=== PATIENT | female | born 1980 | race Caucasian/White ===

== ENCOUNTER → 2018-09-08 | Outpatient (CLI) | payer OTHER | LOC: M RAD 09:55 | DX: O10.013 Pre-existing essential hypertension complicating pregnancy, third trimester (principal); O09.523 Supervision of elderly multigravida, third trimester; Z3A.35 35 weeks gestation of pregnancy | CPT/HCPCS: 76815 ==

== ENCOUNTER 2018-09-28 14:51 | Inpatient (IN) | payer OTHER ==
[2018-09-28] MEDS ORDERED: LR 1,000 ML IV (16:30)
[2018-09-28] MEDS: LR 1,000 ML IV (16:37)
[2018-09-28 16:45] LABS: BASO # 0.1 10^3/uL (0.0-0.2); BASO % 0.4 % (0.0-1.0); EOS # 0.1 10^3/uL (0.0-0.50); EOS % 0.7 % (0.0-3.0); HEMATOCRIT 39.4 % (36.0-47.0); HEMOGLOBIN 12.9 g/dl (12.0-15.5); IMMATURE GRANULOCYTE % 0.5 % (0-3.0); LYMPH # 2.2 10^3/uL (1.5-4.5); LYMPH % 16.4 % (24.0-44.0); MEAN CORPUSCULAR HGB CONC 32.7 g/dl (32.0-36.5); MEAN CORPUSCULAR VOLUME 88.5 fl (80.0-96.0); MONO # 0.9 10^3/uL (0.0-0.8); MONO % 6.9 % (0.0-5.0); NEUTROPHILS # 10.1 10^3/uL (1.8-7.7); NEUTROPHILS % 75.1 % (36.0-66.0); PLATELET COUNT, AUTOMATED 363 10^3/uL (150-450); RED BLOOD COUNT 4.45 10^6/uL (4.00-5.40); RED CELL DISTRIBUTION WIDTH 13.2 % (11.5-14.5); WHITE BLOOD COUNT 13.4 10^3/uL (4.0-10.0)
[2018-09-28 16:56] LABS: APPEARANCE, URINE HAZY (CLEAR); BACTERIA, URINE AUTO 1+ (NEGATIVE); BILIRUBIN, URINE AUTO NEGATIVE (NEGATIVE); BLOOD, URINE BLOOD NEGATIVE (NEGATIVE); COLOR, URINE YELLOW (YELLOW); GLUCOSE, URINE (UA) AUTO NEGATIVE (NEGATIVE); KETONE, URINE AUTO NEGATIVE (NEGATIVE); LEUKOCYTE ESTERASE, URINE AUTO 3+ (NEGATIVE); MUCUS, URINE SMALL (NEGATIVE); NITRITE, URINE AUTO NEGATIVE (NEGATIVE); PROTEIN, URINE AUTO NEGATIVE (NEGATIVE); RBC, URINE AUTO 3 /HPF (0-3); SPECIFIC GRAVITY URINE AUTO 1.018 (1.002-1.035); SQUAMOUS EPITHELIAL CELL UR AU 16 /HPF (0-6); UROBILINOGEN, URINE AUTO 0.2 mg/dL (0.0-2.0); WBC, URINE AUTO 16 /HPF (0-3)
[2018-09-28] MEDS: OXYTOCIN DRIP 30 UNITS in APPROPRIATE DILUENT 1 EA IV ×2 (16:57→23:35)
[2018-09-28] MEDS: LACTATED RINGER'S 1000 ML IV (16:58)
[2018-09-28 17:05] LABS: ALT/SGPT 16 U/L (12-78); AST/SGOT 12 U/L (7-37); BILIRUBIN,TOTAL 0.3 MG/DL (0.2-1.0); CREATININE FOR GFR 0.66 MG/DL (0.55-1.30); GLOMERULAR FILTRATION RATE > 60.0 (>58); LDH LACTATE DEHYDROGENASE 154 U/L (84-246); URIC ACID 4.9 MG/DL (2.6-6.0)
[2018-09-28 17:16] LABS: TOTAL PROTEIN,RANDOM URINE 17.1 MG/DL (0.0-12.0)
[2018-09-28] MEDS ORDERED: FENTANYL 2MCG/ML ROPIVACAINE 0.2% IN 0.9% NACL 200ML IVBAG As Ordered (17:21)
[2018-09-28] MEDS ORDERED: LACTATED RINGER'S 1000 ML IV (18:00)
[2018-09-28] MEDS ORDERED: EPIDURAL COMMENT XX (18:00)
[2018-09-28] MEDS ORDERED: REFRIGERATOR IV KEYS XX (18:00)
[2018-09-28] MEDS ORDERED: NALOXONE INJ 0.4 MG/1 ML VIAL (J2310) IV (18:00)
[2018-09-28] MEDS ORDERED: EPIDURAL/PCA KEYS XX (18:00)
[2018-09-28] MEDS ORDERED: ONDANSETRON 4MG/2ML VIAL (J2405) IV ×2 (18:00→23:45)
[2018-09-28] MEDS ORDERED: diphenhydrAMINE INJ 50MG/ML VIAL (J1200) IV (18:00)
[2018-09-28] MEDS: FENTANYL/ROPIVACAINE/NACL BAG 200 ML EPIDURAL (18:00)
[2018-09-28] MEDS: ePHEDrine SULFATE 25 MG/5 ML(5MG/ML) SYRINGE IV (18:04)
[2018-09-28] MEDS: PENICILLIN G POTASSIUM IV 5 MU in D5W MINI-BAG PLUS 100 ML IV (18:45)
[2018-09-28] MEDS: PENICILLIN G POTASSIUM IV 2.5 MU in APPROPRIATE DILUENT 1 EA IV (22:27)
[2018-09-28] MEDS ORDERED: DIBUCAINE 1% OINTMENT 30GM TOP (23:45)
[2018-09-28] MEDS ORDERED: DOCUSATE SODIUM 100 MG CAP PO (23:45)
[2018-09-29] MEDS: IBUPROFEN 800 MG TAB PO ×3 (00:11→16:29)
[2018-09-29 00:41] LABS: HBSAG L&D NEGATIVE (NEGATIVE)
[2018-09-29] MEDS: ACETAMINOPHEN 500 MG TAB PO ×3 (05:56→18:44)
[2018-09-29] MEDS: MEASLES,MUMPS,RUBELLA VACCINE INJ (MMR-II) (90707) SC (07:01)
[2018-09-29] MEDS: RHOGAM 300 MCG (1500 IU) INJ (J2790) IM (07:01)
[2018-09-29] MEDS: PRENATAL VITAMINS CHEWABLE TABLET PO (08:17)
[2018-09-30] MEDS: IBUPROFEN 800 MG TAB PO (03:49)
[2018-09-30] MEDS: PRENATAL VITAMINS CHEWABLE TABLET PO (07:45)
[2018-09-30] MEDS: ACETAMINOPHEN 500 MG TAB PO (07:45)
== END 2018-09-30 11:30 | disposition home or self-care (01) | DRG 807 ==
LOC: M LDI 14:51 → M OBS 09-29 01:17
PROVIDERS: Obstetrics & Gynecology
PROC: 10E0XZZ Delivery of Products of Conception, External Approach (ICD-10-PCS; principal; 2018-09-28)
PROC: 10907ZC Drainage of Amniotic Fluid, Therapeutic from Products of Conception, Via Natural or Artificial Opening (ICD-10-PCS; 2018-09-28)
PROC: 3E033VJ Introduction of Other Hormone into Peripheral Vein, Percutaneous Approach (ICD-10-PCS; 2018-09-28)
DX: O10.02 Pre-existing essential hypertension complicating childbirth (principal); Z37.0 Single live birth; Z3A.38 38 weeks gestation of pregnancy; O99.824 Streptococcus B carrier state complicating childbirth

== ENCOUNTER 2018-10-13 10:14 | Emergency (ER) | payer OTHER | END 2018-10-13 12:39 | disposition home or self-care (01) | LOC: M ED 10:14 | DX: N61.0 Mastitis without abscess (principal) | CPT/HCPCS: 99282 ==

== ENCOUNTER 2020-01-23 08:41 | Outpatient (CLI) | payer OTHER ==
[2020-01-23] VITALS (8 sets, daily range): BP systolic 109–133; BP diastolic 56–86
[~2020-01-23] VITALS: Ht 165.1 cm; Wt 77.3 kg
[~2020-01-23 08:41] MED LIST: ASPI81TA26 PO; BENA25CA4 PO; IBUP-1114 PO; KEFL500C17 PO; MAPA500T2 PO; PRENTAB9 PO
[2020-01-23] MEDS ORDERED: MAGN400C2 PO (08:59)
[2020-01-23] MEDS ORDERED: ASPI81TA85 PO (08:59)
[2020-01-23] MEDS: BETAMETHASONE SOLUSPAN 6MG/ML INJ 5ML (J0702) IM SCH (09:47)
[2020-01-23 09:58] LABS: BASO % 0.3 % (0.0-1.0); EOS # 0.1 10^3/uL (0.0-0.5); EOS % 1.2 % (0.0-3.0); HEMATOCRIT 39.1 % (36.0-47.0); HEMOGLOBIN 12.7 g/dl (12.0-15.5); LYMPH # 1.2 10^3/uL (1.5-5.0); LYMPH % 13.2 % (24.0-44.0); MEAN CORPUSCULAR HEMOGLOBIN 29.4 pg (27.0-33.0); MEAN CORPUSCULAR HGB CONC 32.5 g/dl (32.0-36.5); MEAN CORPUSCULAR VOLUME 90.5 fl (80.0-96.0); MONO # 0.6 10^3/uL (0.0-0.8); MONO % 6.8 % (0.0-5.0); NEUTROPHILS # 7.2 10^3/uL (1.5-8.5); PLATELET COUNT, AUTOMATED 247 10^3/uL (150-450); RED BLOOD COUNT 4.32 10^6/uL (4.00-5.40); WHITE BLOOD COUNT 9.3 10^3/uL (4.0-10.0)
[2020-01-23] MEDS ORDERED: LR 1,000 ML IV SCH (10:00)
[2020-01-23] MEDS: PRENATAL VITAMINS CHEWABLE TABLET PO SCH (10:10)
[2020-01-23] MEDS ORDERED: PENICILLIN G POTASSIUM IV 5 MU in D5W MINI-BAG PLUS 100 ML IV STA (10:23)
[2020-01-23] MEDS ORDERED: TERBUTALINE SULFATE 1 MG/ML VIAL (J3105) SC ONE (10:30)
[2020-01-23] MEDS: LR 1,000 ML IV SCH ×3 (11:09→22:58)
[2020-01-23] MEDS: PENICILLIN G POTASSIUM IV 2.5 MU in IV 1 EA IV SCH ×3 (14:46→22:58)
[2020-01-23 16:40] LABS: APPEARANCE, URINE CLEAR (CLEAR); BACTERIA, URINE AUTO NEGATIVE (NEGATIVE); BILIRUBIN, URINE AUTO NEGATIVE (NEGATIVE); BLOOD, URINE BLOOD NEGATIVE (NEGATIVE); COLOR, URINE STRAW (YELLOW); GLUCOSE, URINE (UA) AUTO NEGATIVE (NEGATIVE); KETONE, URINE AUTO 2+ mg/dL (NEGATIVE); LEUKOCYTE ESTERASE, URINE AUTO NEGATIVE (NEGATIVE); NITRITE, URINE AUTO NEGATIVE (NEGATIVE); PROTEIN, URINE AUTO NEGATIVE (NEGATIVE); RBC, URINE AUTO 0 /HPF (0-3); SPECIFIC GRAVITY URINE AUTO 1.006 (1.002-1.035); SQUAMOUS EPITHELIAL CELL UR AU 1 /HPF (0-6); UROBILINOGEN, URINE AUTO 0.2 mg/dL (0.0-2.0); WBC, URINE AUTO 0 /HPF (0-3)
[2020-01-23] MEDS ORDERED: diphenhydrAMINE 25 MG CAP PO ONE (22:00)
[2020-01-24 02:43] VITALS: BP 106/59
[2020-01-24] MEDS: PENICILLIN G POTASSIUM IV 2.5 MU in IV 1 EA IV SCH (03:17)
[2020-01-24 06:52] VITALS: BP 127/63
[2020-01-24 07:06] VITALS: BP 134/65
--- NOTE | 2020-01-24 08:05 | IPN ---
DATE OF SERVICE: This is a 39-year-old 10, para 7, at 35 and 6 weeks of gestation with an EDC of February 21, 2020 presented with a one-time episode of vaginal bleeding. No contractions. No loss of fluid. And she has not had any other symptomatology of bleeding since being here more than 24 hours. She has the occasional tightening and she has good kick chart motion. Her risk factors is that she is an AMA, has chronic hypertension with no medications. She is presently on ASA 81 mg and she is on monitoring protocol. 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 On her initial examination she had some small dark bleeding, vertex 1 cm. No evidence of any further bleeding. She was given terbutaline and steroids for lung enhancement. She has one final dose and 0900 this morning 12/26/2019. Hemoglobin was 12.7, hematocrit 39.1 and platelets are 247. She is B+, does not require RhoGAM. Overnight she had the occasional tightening, no evidence of bleeding and we are awaiting her steroid completeness. If she has no further bleeding or contractions possibility of discharge will be entertained. She is going to have breakfast this morning, wait for steroid completeness, and we make a reassessment at that time. Her blood pressure is 120-156, respirations 18, pulse 100, temperature is 97.9. The patient expressed understanding of the plan of care. 20-minute discussion. cc: [employer] SPECIALIST Ernesto MORENO
[2020-01-24] MEDS: PRENATAL VITAMINS CHEWABLE TABLET PO SCH (08:58)
[2020-01-24] MEDS: BETAMETHASONE SOLUSPAN 6MG/ML INJ 5ML (J0702) IM SCH (09:48)
--- NOTE | 2020-01-24 11:19 | REP ---
Obstetric sonography: History limited study. Findings: Scanning demonstrates a living single intrauterine gestation in a cephalic lie. Placenta is right lateral and fundal grade 3 without evidence of previa or abruption. Umbilical cord is seen draping across shoulders. Amniotic fluid is subjectively normal. heart rate is recorded at 152 beats per minute. Closed cervical length viewed transabdominally is 3.4 cm. Biophysical profile score is eight out of a possible eight. SD ratio in the umbilical cord artery by Doppler is normal at 2.23. Incidental note is made of mild dilation of the renal pelvis on the right to measurement of 1 cm. urinary tract sonography suggested. Electronically Signed by David North MD 01/24/2020 11:11 A
[2020-01-24 11:21] VITALS: BP 121/64
== END 2020-01-24 11:58 | disposition home or self-care (01) ==
LOC: M LDO 08:41
PROVIDERS: ATTEND Advanced Practice Midwife
DX: O09.513 Supervision of elderly primigravida, third trimester (principal); Z3A.35 35 weeks gestation of pregnancy; O10.013 Pre-existing essential hypertension complicating pregnancy, third trimester; O34.13 Maternal care for benign tumor of corpus uteri, third trimester; D25.9 Leiomyoma of uterus, unspecified; Z79.899 Other long term (current) drug therapy
CPT/HCPCS: 36415; 59025; 76815; 76819; 76820; 81001; 85025; 86780; 86850; 87081; 87086; 87186; 96365; 96372; G0463; J0702; J3105

== ENCOUNTER 2020-02-14 12:57 | Inpatient (IN) | payer OTHER ==
[2020-02-14] VITALS (16 sets, daily range): BP systolic 116–146; BP diastolic 63–92
[~2020-02-14] VITALS: Ht 165.1 cm; Wt 77.7 kg
[~2020-02-14 12:57] MED LIST changes: +ASPI81TA85 PO; +MAGN400C2 PO
[2020-02-14] MEDS ORDERED: LR 1,000 ML IV SCH (13:07)
[2020-02-14] MEDS ORDERED: PENICILLIN G POTASSIUM IV 5 MU in D5W MINI-BAG PLUS 100 ML IV STA (13:07)
[2020-02-14] MEDS ORDERED: ACET25TA12 PO (13:21)
[2020-02-14] MEDS ORDERED: MELA10CA PO (13:23)
[2020-02-14] MEDS ORDERED: CALM FORTE PO (13:23)
[2020-02-14] MEDS ORDERED: OXYTOCIN DRIP 30 UNITS in IV 1 EA IV SCH ×2 (13:45→20:00)
[2020-02-14 14:10] LABS: BASO % 0.2 % (0.0-1.0); EOS # 0.1 10^3/uL (0.0-0.5); EOS % 1.1 % (0.0-3.0); HEMATOCRIT 39.7 % (36.0-47.0); HEMOGLOBIN 13.2 g/dl (12.0-15.5); LYMPH # 1.3 10^3/uL (1.5-5.0); LYMPH % 16.1 % (24.0-44.0); MEAN CORPUSCULAR HEMOGLOBIN 29.5 pg (27.0-33.0); MEAN CORPUSCULAR HGB CONC 33.2 g/dl (32.0-36.5); MEAN CORPUSCULAR VOLUME 88.6 fl (80.0-96.0); MONO # 0.4 10^3/uL (0.0-0.8); MONO % 4.8 % (0.0-5.0); NEUTROPHILS # 6.4 10^3/uL (1.5-8.5); NEUTROPHILS % 77.4 % (36.0-66.0); PLATELET COUNT, AUTOMATED 246 10^3/uL (150-450); RED BLOOD COUNT 4.48 10^6/uL (4.00-5.40); WHITE BLOOD COUNT 8.3 10^3/uL (4.0-10.0)
[2020-02-14 14:25] LABS: APPEARANCE, URINE HAZY (CLEAR); BACTERIA, URINE AUTO NEGATIVE (NEGATIVE); BILIRUBIN, URINE AUTO NEGATIVE (NEGATIVE); BLOOD, URINE BLOOD NEGATIVE (NEGATIVE); COLOR, URINE YELLOW (YELLOW); GLUCOSE, URINE (UA) AUTO NEGATIVE (NEGATIVE); KETONE, URINE AUTO TRACE mg/dL (NEGATIVE); LEUKOCYTE ESTERASE, URINE AUTO NEGATIVE (NEGATIVE); MUCUS, URINE SMALL (NEGATIVE); NITRITE, URINE AUTO NEGATIVE (NEGATIVE); PROTEIN, URINE AUTO NEGATIVE (NEGATIVE); RBC, URINE AUTO 1 /HPF (0-3); SPECIFIC GRAVITY URINE AUTO 1.023 (1.002-1.035); SQUAMOUS EPITHELIAL CELL UR AU 2 /HPF (0-6); WBC, URINE AUTO 1 /HPF (0-3)
[2020-02-14 14:40] LABS: ALT/SGPT 12 U/L (12-78); BILIRUBIN,TOTAL 0.5 MG/DL (0.2-1.0); CREATININE FOR GFR 0.74 MG/DL (0.55-1.30); GLOMERULAR FILTRATION RATE > 60.0 (>58); LDH LACTATE DEHYDROGENASE 166 U/L (84-246); URIC ACID 5.3 MG/DL (2.6-6.0)
[2020-02-14 14:41] LABS: TOTAL PROTEIN,RANDOM URINE 20.7 MG/DL (0.0-12.0)
--- NOTE | 2020-02-14 14:58 | HPEPDOC ---
Obstetrical History & Physical General Date of Admission Feb 14, 2020 at 12:57 History of Present Illness Anya is a 39yo at 39+0wks gestation, EDC by 1st trimester US, who presents to LND for Induction of labor d/t CHTN (not on meds). She endorses excellent movement, denies LOF/VB/CTX. She denies PRESTON/RUQ pain/visual disturbances. She is here with her supportive partner at the bedside. Her has been complicated by CHTN (was taking 81mg ASA, stopped at 36 weeks) and Advanced Maternal Age. She is steroid complete after being observed for bleeding around 35+ weeks. She is GBS Positive, Blood Type B Positive OB Hx: 2004: at 40 weeks 2005: at 40 weeks 2010: at 38 weeks 2011: at 38 weeks 2012: at 40 weeks 2016: at 38 weeks 2017: Blighted OVUM 2017: SAB with D&C 2019: at 39 weeks (HTN) Pelvis tested to [id number] Chief Complaint: Induction of labor Information Provided By: Patient Age: 39 : 10 Term: 7 Pre-term: 0 Abortions: 2 Livin Care Care: Good Care Number of Visits: 7 Dating Final EDC: Feb 21, 2020 Final EDC for Daily Update: Feb 21, 2020 Final EDC by: 1st trimester (US) Antepartum Course Height (inches): 65 Pre- weight (lbs.): 146 Admission Weight (lbs.): 179 Change in Weight (lbs.): 33 Past Medical History Past Obstetrical History : Past Obstetrical History: Multigravida Complications: 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 Past Medical History Medical History Chronic Hypertension Surgical History: Dilatation and Curettage, [place] teeth Family History Significant Family History: No pertinent family hx Social History Marital Status: Family situation: Spouse/partner home Psychosocial History: No pertinent psych hx * Smoker: non-smoker Alcohol: Denies Drugs: denies Imunizations Tdap status: declined Influenza Status: declined Allergies Coded Allergies: Cat Dander (Verified Allergy, Mild, ITCHY EYES, 02/14/20) Medications Scheduled Aspirin (Aspir 81) 81 Mg Tablet.dr, 81 MG PO DAILY for pain Magnesium Oxide (Magnesium) 400 Mg Capsule, 400 MG PO DAILY for constipation No.137/Iron/Folic Acd ( Vitamin Tablet) 1 Tab Tab, 1 TAB PO DAILY Scheduled PRN Acetaminophen/Diphenhydramine (Acetaminophen Pm Caplet) 1 Each Tablet, 2 TAB PO QHSP PRN for SLEEP Melatonin (Melatonin) 10 Mg Capsule, 1 CAP PO QHSP PRN for SLEEP [Calm Forte] , 1-3 TABS PO QHSP PRN for SLEEP Physical Examination Physical Examination GENERAL: Alert and oriented times three. ABDOMEN: Gravid and non-tender to touch. FETUS: Is vertex (VTX) by sterile vaginal examination (SVE). HEART RATE: Regular rate. LUNGS: Observed normal, nonlabored breathing. EXTREMITIES: No edema. Vital Signs/I&O O: VSS, normotensive, afebrile FHR 130s, moderate variability, + accels, no decels noted CTX by toco: irregular and mild, pt denies VE: 3/50/H, head ballottable Pre-E labs WNL Laboratory Tests 02/14/20 13:12: Serology Scanned Report Hepatitis B Testing 02/14/20 13:55: White Blood Count 8.3, Red Blood Count 4.48, Hemoglobin 13.2, Hematocrit 39.7, Mean Corpuscular Volume 88.6, Mean Corpuscular Hemoglobin 29.5, Mean Corpuscular Hemoglobin Concent 33.2, Red Cell Distribution Width 13.8, Platelet Count 246, Immature Granulocyte % (Auto) 0.4, Neutrophils (%) (Auto) 77.4H, Lymphocytes (%) (Auto) 16.1L, Monocytes (%) (Auto) 4.8, Eosinophils (%) (Auto) 1.1, Basophils (%) (Auto) 0.2, Neutrophils # (Auto) 6.4, Lymphocytes # (Auto) 1.3L, Monocytes # (Auto) 0.4, Eosinophils # (Auto) 0.1, Basophils # (Auto) 0.0, Nucleated Red Blood Cells % (auto) 0.0, Urine Color YELLOW, Urine Appearance HAZY, Urine pH 5.0, Urine Specific [place] 1.023, Urine Protein NEGATIVE, Urine Glucose (Auto)(UA) NEGATIVE, Urine Ketones (Auto) TRACEH, Urine Blood NEGATIVE, Urine Nitrite NEGATIVE, Urine Bilirubin NEGATIVE, Urine Urobilinogen 2.0H, Urine Leukocyte Esterase (Auto) NEGATIVE, Urine WBC (Auto) 1, Urine RBC (Auto) 1, U rine Hyaline Casts (Auto) 0, Urine Bacteria (Auto) NEGATIVE, Urine Squamous Epithelial Cells 2, Urine Mucus (Auto) SMALL, Urine Sperm (Auto) , Creatinine 0.74, Glomerular Filtration Rate > 60.0, Uric Acid 5.3, Total Bilirubin 0.5, Aspartate Amino Transf (AST/SGOT) 13, Alanine Aminotransferase (ALT/SGPT) 12, Lactate Dehydrogenase 166, Syphilis Serology [Pending] 02/14/20 13:58: Urine Random Creatinine 213.0, Urine Random Total Protein 20.7H Laboratory Tests 02/14/20 13:55 Laboratory Data 24H LABS Laboratory Tests 2 02/14/20 13:12: Serology Scanned Report Hepatitis B Testing Pertinent Laboratoy Data Blood Type: B+ RBC Antibody Screen: Negative HIV: Negative Hepatitis B: Negative Rapid Plasma Reagin: Nonreactive Rubella: Immune Varicella: Nonreactive Chlamydia/Gonorrhea: Negative Group B Streptococcus: Positive Quad Screen Test: Declined Anatomy Ultrasound Ultrasound Date: Oct 02, 2019 Placenta Location: Posterior Normal Anatomy: Yes Placenta Previa: No Other Ultrasounds [id number]: Growth and monitor fibroid - fibroid right posterior uterus at 4.3x2.5x2.8cm; 70%tile [id number]: Incidental finding during BPP of right dilated renal pelvis (1cm) - recommend f/u; placenta right lateral Steroid Therapy Steroid Therapy: Yes Date #1: Jan 23, 2020 Date #2: Jan 24, 2020 Reason Bleeding Assessment/Plan Assessment Anya is a 39yo at 39wks being admitted for IOL d/t CHTN. Her BP is normotensive thus far; Category I FHT. GBS Positive; B Positive blood type. Plan P: Admit to LND, Consent for induction methods, labor and delivery PIV start, admission and Pre-E labs collected PO and IV hydration CEFM x2 Start IOL with pitocin per low dose protocol GBS Prophylaxis once labor starts [place] follow-up for right pyelectasis Close maternal/ monitoring Consult with OB as indicated Anticipate PATSY LUKE CNM Feb 14, 2020 14:02
[2020-02-14] MEDS ORDERED: PENICILLIN G POTASSIUM IV 2.5 MU in IV 1 EA IV SCH (19:00)
--- NOTE | 2020-02-14 19:22 | IPNPDOC ---
Text Note Date of Service The patient was seen on 02/14/20. NOTE Intrapartum Note Anya is a 39yo at 39w0d who is undergoing induction of labor d/t CHTN (not on meds). She was started on Pitocin and treated with PCN for GBS posi tive status. Currently Pitocin is at 8mu and 2nd bag of PCN is running. She is feeling the ctx now, not terribly strong yet. Vitals overall wnl, occasional mild range bp, afebrile Cat I FHRT with bl 130, +accels, -decels, mod lillie [place]: ctx q2-3min SCE: /-2, AROM performed with copious clear fluid noted and well tolerated Will continue to closely observe, will likely deliver soon Safe to proceed Dr. Holly Ascencio MD VS,Isabelle, I+O VS, Isabelle, I+O Laboratory Tests 02/14/20 13:55 Vital Signs Date Time Temp Pulse Resp B/P (MAP) Pulse Ox O2 Delivery O2 Flow Rate FiO2 02/14/20 18:16 81 16 130/79 (96) 02/14/20 17:17 98.3 98 Room Air Holly Ascencio MD Feb 14, 2020 19:22
[2020-02-14] MEDS ORDERED: DIBUCAINE 1% OINTMENT 30GM TOP PRN (19:45)
[2020-02-14] MEDS ORDERED: ACETAMINOPHEN TAB 650MG DOSE (2X325MG) PO PRN (19:45)
[2020-02-14] MEDS ORDERED: RHOGAM 300 MCG (1500 IU) INJ (J2790) IM SCH (19:45)
[2020-02-14] MEDS ORDERED: IBUPROFEN 600 MG TAB PO PRN (19:45)
[2020-02-14] MEDS ORDERED: DOCUSATE SODIUM 100 MG CAP PO PRN (19:45)
[2020-02-14] MEDS ORDERED: METHYLERGONOVINE MALEATE 0.2 MG TAB PO PRN (19:45)
[2020-02-14] MEDS ORDERED: MEASLES,MUMPS,RUBELLA VACCINE INJ (MMR-II) (90707) SC SCH (19:45)
--- NOTE | 2020-02-14 19:48 | DNPDOC ---
[facility] Delivery Note Delivery Note DATE OF DELIVERY: 02/14/2020 PREDELIVERY DIAGNOSIS: 39w0d gestation and labor. POST DELIVERY DIAGNOSIS: Delivered. PROCEDURE: Spontaneous vaginal delivery TELEPHONE ADVICE NURSE: Dr. Holly Ascencio MD ANESTHESIA: none ESTIMATED BLOOD LOSS: 200 mL. FINDINGS: 8 pound 2 ounce (3690g) male infant, Score 9/9 DELIVERY SUMMARY: Anya is a 39yo [id number] s/p uncomplicated at 39w0d on 14 Feb 2020 at 1923 after undergoing IOL for CHTN (no meds). She was initiated on pitocin and at 5cm had AROM, progressed within 20 minutes to complete at which point she began pushing. She did receive full GBS prophylaxis coverage with PCN 2 doses. 's head delivered OA just as I entered the room, restituted CHRISTINA. Left anterior shoulder delivered followed by posterior shoulder and corpus. had spontaneous cry, vigorous, apgars 9/9, placed on maternal abdomen- nose and mouth suctioned with bulb suction. Cord clamped x2 after 2 minutes and cut by FOB. With uterine massage and traction on the cord, placenta delivered spontaneously and intact with 3 vessel centrally inserted cord. Uterine massage performed and IV pitocin given per protocol, fundus then firm at u-2cm and scant bleeding noted. Inspection of perineum and vagina revealed no lacerations, only a tiny abrasion at the introitus with no bleeding- complete hemostasis noted. All counts correct x2. Mom and doing well when I left the room. MD Silva Chen Katrina D MD Feb 14, 2020 19:48
[2020-02-14] MEDS: IBUPROFEN 800 MG TAB PO PRN (20:08)
[2020-02-15] MEDS: ACETAMINOPHEN 500 MG TAB PO PRN ×3 (02:55→20:26)
[2020-02-15 05:44] VITALS: BP 115/57
--- NOTE | 2020-02-15 06:04 | IPNPDOC ---
Progress Note Date of Service: Feb 15, 2020 Day#: 1 Progress Note PPD 1 SUBJECT: Anya is a 39yo [id number] s/p uncomplicated at 39w0d on 14 Feb 2020 at 1923 after undergoing IOL for CHTN (no meds). She is doing well day # 1. She has been ambulating, voiding spontaneously without issue and tolerating regular diet. Breast feeding without issue. Reports lochia is lik e a heavy period. Cramping with , taking tylenol/motrin with relief. No f/c/n/v/CP/SOB. No lightheadedness/dizziness. OBJECTIVE: VITAL SIGNS: Within normal limits, afebrile. Alert and oriented times three. Abdomen: Fundus firm at U-2. Soft, NTTP. Extremities: no pain with palpation of calves ASSESSMENT: Anya is a 39yo [id number] s/p uncomplicated at 39w0d on 14 Feb 2020 at 1923 after undergoing IOL for CHTN (no meds). She is doing well day # 1. Vitals within normal limits (occasional mild range bp), afebrile, hemodynamically stable with no evidence of infection. PLAN: 1. Discharge to home later this evening 2. Tylenol and Motrin for pain. 3. Encourage breast feeding and ambulation. 4. Will address contraception at PP visit 5. Pt instructed to schedule routine PP visit in 6 weeks in clinic. 6. Discussed return precautions at length. 7. Vaginal rest x6 weeks, no heavy lifting Dr. Holly Ascencio MD VS, I&O, 24H, [facility] Vital Signs/I&O Vital Signs Date Time Temp Pulse Resp B/P (MAP) Pulse Ox O2 Delivery O2 Flow Rate FiO2 02/15/20 05:44 98.0 79 18 115/57 (76) 02/14/20 17:17 98 Room Air I&O- Last 24 Hours up to 6 AM 02/15/20 06:00 Intake Total 2198 ml Output Total 1300 ml Balance 898 ml Laboratory Data 24H LABS Laboratory Tests 2 02/14/20 13:12: Serology Scanned Report Hepatitis B Testing 02/14/20 13:55: Immature Granulocyte % (Auto) 0.4, Neutrophils (%) (Auto) 77.4H, Lymphocytes (%) (Auto) 16.1L, Monocytes (%) (Auto) 4.8, Eosinophils (%) (Auto) 1.1, Basophils (%) (Auto) 0.2, Neutrophils # (Auto) 6.4, Lymphocytes # (Auto) 1.3L, Monocytes # (Auto) 0.4, Eosinophils # (Auto) 0.1, Basophils # (Auto) 0.0, Nucleated Red Blood Cells % (auto) 0.0, Urine Color YELLOW, Urine Appearance HAZY, Urine pH 5.0, Urine Specific [place] 1.023, Urine Protein NEGATIVE, Urine Glucose (Auto)(UA) NEGATIVE, Urine Ketones (Auto) TRACEH, Urine Blood NEGATIVE, Urine Nitrite NEGATIVE, Urine Bilirubin NEGATIVE, Urine Urobilinogen 2.0H, Urine Leukocyte Esterase (Auto) NEGATIVE, Urine WBC (Auto) 1, Urine RBC (Auto) 1, Urine Hyaline Casts (Auto) 0, Urine Bacteria (Auto) NEGATIVE, Urine Squamous Epithelial Cells 2, Urine Mucus (Auto) SMALL, Urine Sperm (Auto) , Glomerular Filtration Rate > 60.0, Uric Acid 5.3, Total Bilirubin 0.5, Aspartate Amino Transf (AST/SGOT) 13, Alanine Aminotransferase (ALT/SGPT) 12, Lactate Dehydrogenase 166 02/14/20 13:58: Urine Random Creatinine 213.0, Urine Random Total Protein 20.7H CBC/BMP Laboratory Tests 02/14/20 13:55 Holly Ascencio MD Feb 15, 2020 06:04
[2020-02-15] MEDS ORDERED: IBUP80TA PO (06:05)
[2020-02-15] MEDS ORDERED: ACET-683 PO (06:05)
--- NOTE | 2020-02-15 06:09 | DS.PDOC ---
Discharge Summary General Date of Admission Feb 14, 2020 at 12:57 Date of Discharge Feb 15, 2020 Discharge Summary PROCEDURES PERFORMED DURING STAY: spontaneous vaginal delivery ADMITTING DIAGNOSES: 1. IOL for CHTN DISCHARGE DIAGNOSES: 1. IOL for CHTN COMPLICATIONS/CHIEF COMPLAINT: Induction. HISTORY OF PRESENT ILLNESS/HOSPITAL COURSE: Anya is a 39yo [id number] s/p uncomplicated at 39w0d on 14 Feb 2020 at 1923 after undergoing IOL for CHTN (no meds). She is doing well day # 1. She has had a benign course, at time of discharge, her vitals were within normal limits (occasional mild range bp), afebrile, hemodynamically stable with no evidence of infection. DISCHARGE MEDICATIONS: Please see below. ALLERGIES: Please see below. PHYSICAL EXAMINATION ON DISCHARGE: VITAL SIGNS: Within normal limits, afebrile. Alert and oriented times three. Abdomen: Fundus firm at U-2. Soft, NTTP. Extremities: no pain with palpation of calves LABORATORY DATA: Please see below. DIET: regular DISPOSITION: home DISCHARGE PLAN/INSTRUCTIONS: 1. Discharge to home later this evening 2. Tylenol and Motrin for pain. 3. Encourage breast feeding and ambulation. 4. Will address contraception at PP visit 5. Pt instructed to schedule routine PP visit in 6 weeks in clinic. 6. Discussed return precautions at length. 7. Vaginal rest x6 weeks, no heavy lifting DISCHARGE CONDITION: Stable TIME SPENT ON DISCHARGE: Greater than [address] Holly Ascencio MD Vital Signs/I&Os Vital Signs Date Time Temp Pulse Resp B/P (MAP) Pulse Ox O2 Delivery O2 Flow Rate FiO2 02/15/20 05:44 98.0 79 18 115/57 (76) 02/14/20 17:17 98 Room Air I&O- Last 24 Hours up to 6 AM 02/15/20 06:00 Intake Total 2198 ml Output Total 1300 ml Balance 898 ml Laboratory Data Labs 24H Laboratory Tests 2 02/14/20 13:12: Serology Scanned Report Hepatitis B Testing 02/14/20 13:55: Immature Granulocyte % (Auto) 0.4, Neutrophils (%) (Auto) 77.4H, Lymphocytes (%) (Auto) 16.1L, Monocytes (%) (Auto) 4.8, Eosinophils (%) (Auto) 1.1, Basophils (%) (Auto) 0.2, Neutrophils # (Auto) 6.4, Lymphocytes # (Auto) 1.3L, Monocytes # (Auto) 0.4, Eosinophils # (Auto) 0.1, Basophils # (Auto) 0.0, Nucleated Red Blood Cells % (auto) 0.0, Urine Color YELLOW, Urine Appearance HAZY, Urine pH 5.0, Urine Specific [place] 1.023, Urine Protein NEGATIVE, Urine Glucose (Auto)(UA) NEGATIVE, Urine Ketones (Auto) TRACEH, Urine Blood NEGATIVE, Urine Nitrite NEGATIVE, Urine Bilirubin NEGATIVE, Urine Urobilinogen 2.0H, Urine Leukocyte Esterase (Auto) NEGATIVE, Urine WBC (Auto) 1, Urine RBC (Auto) 1, Urine Hyaline Casts (Auto) 0, Urine Bacteria (Auto) NEGATIVE, Urine Squamous Epithelial Cells 2, Urine Mucus (Auto) SMALL, Urine Sperm (Auto) , Glomerular Filtration Rate > 60.0, Uric Acid 5.3, Total Bilirubin 0.5, Aspartate Amino Transf (AST/SGOT) 13, Alanine Aminotransferase (ALT/SGPT) 12, Lactate Dehydrogenase 166 02/14/20 13:58: Urine Random Creatinine 213.0, Urine Random Total Protein 20.7H CBC/BMP Laboratory Tests 02/14/20 13:55 Discharge Medications Scheduled Magnesium Oxide (Magnesium) 400 Mg Capsule, 400 MG PO DAILY for constipation, (Reported) No.137/Iron/Folic Acd ( Vitamin Tablet) 1 Tab Tab, 1 TAB PO DAILY, (Reported) Scheduled PRN Acetaminophen (Acetaminophen) 500 Mg Tablet, 1,000 MG PO Q6HP PRN for PAIN LEVEL 6-10 Ibuprofen (Ibuprofen) 800 Mg Tablet, 800 MG PO Q8HP PRN for PAIN LEVEL 6-10 Melatonin (Melatonin) 10 Mg Capsule, 1 CAP PO QHSP PRN for SLEEP, (Reported) [Calm Forte] , 1-3 TABS PO QHSP PRN for SLEEP, (Reported) Allergies Coded Allergies: Cat Dander (Verified Allergy, Mild, ITCHY EYES, 02/14/20) Holly Ascencio MD Feb 15, 2020 06:09
[2020-02-15] MEDS: PRENATAL VITAMINS CHEWABLE TABLET PO SCH (09:36)
[2020-02-15] MEDS: IBUPROFEN 800 MG TAB PO PRN (10:43)
[2020-02-15 18:00] VITALS: BP 147/75
[2020-02-16 06:00] VITALS: BP 130/79
--- NOTE | 2020-02-16 08:57 | DSES ---
DATE OF ADMISSION: 02/14/2020 DATE OF DISCHARGE: 02/16/2020 This lady was discharged yesterday by Dr. Ascencio. However, she is still here and on reviewing with her today she is a 39-year-old, 10, now para 8, admitted for induction of labor at 39 weeks because of chronic hypertension. She had a spontaneous vaginal delivery male 8 pounds 2 ounces (3690 grams) score of 9 and 9 at one and five minutes, respectfully. Risk factors are advance maternal age (AMA) grand multipara and a short interval . Her last baby was in 2018. On reviewing this morning, we discussed phlebitis, cystitis, mastitis, endometritis and cellulitis, diet, exercise, pain management, perineal, breast and wound care. Blood pressure on discharge 130/79, respirations 18, pulse 63, temperature 98.8. She is breast-feeding, doing well, mobilizing and anxious to get home. The patient has her medications, which were dispensed at [facility]. She is making her 6 week checkup next week and she was given discharge instructions. edited: 02/18/2020 [id number] shy SKY
[2020-02-16] MEDS: PRENATAL VITAMINS CHEWABLE TABLET PO SCH (09:13)
== END 2020-02-16 10:30 | disposition home or self-care (01) | DRG 807 ==
LOC: M LDI 12:57 → M OBS 21:35
PROVIDERS: ADMIT Registered Nurse Maternal Newborn; ATTEND Obstetrics & Gynecology
PROC: 10E0XZZ Delivery of Products of Conception, External Approach (ICD-10-PCS; principal; 2020-02-14)
PROC: 10907ZC Drainage of Amniotic Fluid, Therapeutic from Products of Conception, Via Natural or Artificial Opening (ICD-10-PCS; 2020-02-14)
PROC: 3E033VJ Introduction of Other Hormone into Peripheral Vein, Percutaneous Approach (ICD-10-PCS; 2020-02-14)
DX: O10.02 Pre-existing essential hypertension complicating childbirth (principal); Z37.0 Single live birth; Z3A.39 39 weeks gestation of pregnancy; O99.824 Streptococcus B carrier state complicating childbirth